=== PATIENT | female | born 1940 | race Caucasian/White ===

== ENCOUNTER 2018-01-15 14:27 | Outpatient (CLI) | payer MEDICARE | END 2018-01-15 14:28 | disposition home or self-care (01) | LOC: BICMAMMO 14:27 | PROVIDERS: ATTEND Internal Medicine | DX: Z12.31 Encounter for screening mammogram for malignant neoplasm of breast (principal); Z13.820 Encounter for screening for osteoporosis; M85.831 Other specified disorders of bone density and structure, right forearm; M81.0 Age-related osteoporosis without current pathological fracture; R92.1 Mammographic calcification found on diagnostic imaging of breast | CPT/HCPCS: 77063; 77067; 77080 ==

== ENCOUNTER 2018-07-05 09:14 | Outpatient (CLI) | payer MEDICARE ==
--- NOTE | 2018-07-05 11:33 | ULT ---
RIGHT UPPER QUADRANT ULTRASOUND: Date: 07/05/18 HISTORY: Abdominal pain. Celiac disease. FINDINGS: The patient is post cholecystectomy. The liver demonstrates homogeneous echotexture without focal mas s or intrahepatic ductal dilatation. The common duct measures 7.0 mm in diameter. The right kidney is normal. The visualized portions of the pancreas are unremarkable. No free fluid is seen in Morison's pouch. IMPRESSION: Status post cholecystectomy. No significant abnormalities are identified. POS: [facility]
== END 2018-07-05 09:15 | disposition home or self-care (01) ==
LOC: BICULT 09:14
PROVIDERS: ATTEND Internal Medicine
DX: R10.11 Right upper quadrant pain (principal); Z90.49 Acquired absence of other specified parts of digestive tract
CPT/HCPCS: 76705

== ENCOUNTER 2019-03-17 10:41 | Outpatient (CLI) | payer MEDICARE ==
--- NOTE | 2019-03-17 13:16 | MMO ---
Bilateral MAMMO Bilat Screen [facility]. CLINICAL HISTORY: Patient is 79 years old and is seen for screening. The patient has no family history of breast cancer. The patient has no personal history of cancer. VIEWS: The views performed were: bilateral craniocaudal with tomosynthesis and bilateral mediolateral oblique with tomosynthesis. FILMS COMPARED: The present examination has been compared to prior imaging studies performed at [facility] on 10/12/2014, 10/26/2015, 11/17/2016 and 01/15/2018. MAMMOGRAM FINDINGS: There are scattered fibroglandular densities. There are no suspicious masses, suspicious calcifications, or new areas of architectural distortion. IMPRESSION: THERE IS NO MAMMOGRAPHIC EVIDENCE OF MALIGNANCY. A ROUTINE FOLLOW-UP MAMMOGRAM IN 1 YEAR IS RECOMMENDED. THE RESULTS OF THIS EXAM WERE SENT TO THE PATIENT. ACR BI-RADS Category 1 - Negative MAMMOGRAPHY NOTE: 1. A negative mammogram report should not delay a biopsy if a dominant of clinically suspicious mass is present. 2. Approximately 10% to 15% of breast cancers are not detected by mammography. 3. Adenosis and dense breasts may obscure an underlying neoplasm. Reported by: KANA ECHAVARRIA MD Electonically Signed: [id number]
== END 2019-03-17 10:42 | disposition home or self-care (01) ==
LOC: BICMAMMO 10:41
PROVIDERS: ATTEND Internal Medicine
DX: Z12.31 Encounter for screening mammogram for malignant neoplasm of breast (principal)
CPT/HCPCS: 77063; 77067

== ENCOUNTER 2019-06-30 10:28 | Outpatient (CLI) | payer MEDICARE, OTHER ==
--- NOTE | 2019-06-30 12:54 | CT ---
CT ABDOMEN AND PELVIS WITH CONTRAST: HISTORY: Right-sided abdominal pain. FINDINGS: ABDOMEN: The lung bases are clear of any infiltrative process. The liver, spleen and pancreas regions appear unremarkable. The gallbladder appears to have been noble jacky. The right and left adrenal glands are normal. A hypodensity involving the left kidney measures 2.4 cm , compatible with a cyst. No renal calculi or obstruction. No significant periaortic or mesenteric ad enopathy. PELVIS: The cecum is low lying in position. It is difficult to definitely identify an appendix. I do not see any definite evidence for appendicitis. There is some very mild diverticulosis of the sigmoid colon noted. There is an area of some narrowing to the ascending colon which is felt to most likely be just related to contraction. Postoperative changes of the lower lumbar spine, sacrum and both hips are seen. IMPRESSION: No acute findings of the abdomen or pelvis. Incidental findings as noted above. POS: [facility]
== END 2019-06-30 10:29 | disposition home or self-care (01) ==
LOC: BICCT 10:28
PROVIDERS: ATTEND Internal Medicine
DX: R10.11 Right upper quadrant pain (principal)
CPT/HCPCS: 74177

== ENCOUNTER 2020-03-23 08:26 | Outpatient (CLI) | payer MEDICARE, OTHER ==
--- NOTE | 2020-03-23 09:29 | BD ---
EXAM: DEXA bone density examination HISTORY: 80-year-old postmenopausal female for screening COMPARISON: None FINDINGS: Left distal third forearm--bone mineral density0.567; T score -2.1 Total left distal forearm--bone mineral density 0.394; T score -3.4 Right distal third forearm--bone mineral density0.589; T score -1.7 Total right distal forearm--bone mineral density 0.415; T score -3.0 IMPRESSION: Osteoporosis.
--- NOTE | 2020-03-23 11:00 | MMO ---
Bilateral MAMMO Bilat Screen [facility]. CLINICAL HISTORY: Patient is 80 years old and is seen for screening. The patient has no family history of breast cancer. The patient has no personal history of cancer. VIEWS: The views performed were: bilateral craniocaudal with tomosynthesis and bilateral mediolateral oblique with tomosynthesis. FILMS COMPARED: The present examination has been compared to prior imaging studies performed at [facility] on 10/26/2015, 11/17/2016, 01/15/2018 and 03/17/2019. This study has been interpreted with the assistance of computer-aided detection. MAMMOGRAM FINDINGS: There are scattered fibroglandular densities. There are no suspicious masses, suspicious calcifications, or new areas of architectural distortion. IMPRESSION: THERE IS NO MAMMOGRAPHIC EVIDENCE OF MALIGNANCY. A ROUTINE FOLLOW-UP MAMMOGRAM IN 1 YEAR IS RECOMMENDED. THE RESULTS OF THIS EXAM WERE SENT TO THE PATIENT. ACR BI-RADS Category 1 - Negative MAMMOGRAPHY NOTE: 1. A negative mammogram report should not delay a biopsy if a dominant of clinically suspicious mass is present. 2. Approximately 10% to 15% of breast cancers are not detected by mammography. 3. Adenosis and dense breasts may obscure an underlying neoplasm. Reported by: WILDER GARDUNO MD Electonically Signed: [id number]
== END 2020-03-23 08:27 | disposition home or self-care (01) ==
LOC: BICMAMMO 08:26
PROVIDERS: ATTEND Internal Medicine
DX: Z12.31 Encounter for screening mammogram for malignant neoplasm of breast (principal); M81.0 Age-related osteoporosis without current pathological fracture
CPT/HCPCS: 77063; 77067; 77080

== ENCOUNTER 2021-03-29 08:30 | Outpatient (CLI) | payer MEDICARE, OTHER | END 2021-03-29 08:31 | disposition home or self-care (01) | LOC: BICMAMMO 08:30 | PROVIDERS: ATTEND Internal Medicine | DX: Z12.31 Encounter for screening mammogram for malignant neoplasm of breast (principal) | CPT/HCPCS: 77063; 77067 ==

== ENCOUNTER 2024-04-19 12:54 | Inpatient (IN) | payer MEDICARE, OTHER ==
[2024-04-19 14:05] LABS: Bacteria/HPF 4+ HPF (None Seen); Bilirubin Negative (Negative); Blood, Urine 3+ (Negative); CAUTI Indications for Culture Alt mental st,lethar; Clarity Turbid (Clear); Glucose, Urine (Dipstick) Normal (Negative); Ketone, Urine Negative (Negative); Leukocyte 75 Leu/uL (Negative); Nitrite Negative (Negative); Protein, Urine (Dipstick) 30 mg/dL (Neg-Trace); RBC/HPF 21-50 HPF (0-3); Specific Gravity, Urine 1.025 (1.002-1.036); Squamous Epithelial 0-3 HPF (0-3); Urobilinogen 3 mg/dL (Less than 2); WBC/HPF 21-50 HPF (0-3); pH, Urine 5.5 (5.0-9.0)
[2024-04-19 14:07] LABS: Urine Culture Reflex Yes Yes
[2024-04-19 14:10] LABS: #Basophils 0.11 10x3/uL (0.0-0.2); %Basophils 0.5 % (0.0-1.0); %Eosinophils 0.2 % (0.0-10.0); %Lymphocytes 8.1 % (21.0-51.0); %Monocytes 5.2 % (0.0-10.0); %Neutrophils 85.5 % (42.0-75.0); Hematocrit 47.5 % (36.0-47.0); Hemoglobin 15.8 g/dL (12.0-16.0); Mean Corpuscular HGB CONC 33.3 g/dL (32.0-36.0); Mean Corpuscular Hemoglobin 33.5 pg (27.0-31.0); Mean Corpuscular Volume 100.6 fL (78.0-98.0); Mean Platelet Volume 10.6 fL (7.4-10.4); Platelet Count 416 10x3/uL (130-400); RBC Distribution Width 14.2 % (11.5-14.5); Red Blood Cell (RBC) Count 4.72 mill/uL (4.20-5.40)
[2024-04-19 14:18] LABS: SARS-CoV-2 E Target Negative; SARS-CoV-2 N2 Target Negative; SARS-CoV-2 NAA Rapid Test Not Detected (NotDetected); SARS-CoV-2 RdRP gene Negative
[2024-04-19] MEDS ORDERED: cefTRIAXone (ROCEPHIN) 2 GM VIAL ONE (14:28)
[2024-04-19] MEDS ORDERED: Sodium Chloride 0.9% 100 ML ONE (14:28)
[2024-04-19 14:31] LABS: ALT (SGPT) 25 U/L (8-55); AST (SGOT) 18 U/L (5-34); Alkaline Phosphatase 82 U/L (40-110); Anion Gap 16 mmol/L (10-20); BUN (Urea Nitrogen) 44 mg/dL (9.8-20.1); Bilirubin, Total 0.6 mg/dL (0.2-1.2); CK (CPK) 33 U/L (29-168); Calc. Creatinine Clearance 0 mL/min (70-130); Calcium 11.3 mg/dL (7.8-10.44); Carbon Dioxide 27 mmol/L (23-31); Chloride 113 mmol/L (98-107); Estimated GFR 30; Globulin 4.2 g/dL (2.4-3.5); Glucose 134 mg/dL (83-110); Lipase 14 U/L (8-78); Potassium 3.9 mmol/L (3.5-5.1); Protein, Total 7.2 g/dL (5.8-8.1); Sodium 152 mmol/L (136-145); Troponin I 0.535 ng/mL (< 0.028)
[2024-04-19] MEDS ORDERED: Aspirin 300 MG Suppository ONE (14:39)
[2024-04-19] MEDS ORDERED: Acetaminophen 325 MG TAB PO PRN (15:36)
[2024-04-19] MEDS ORDERED: Ondansetron PF 4 MG/2 ML Vial IVP PRN (15:36)
[2024-04-19 16:06] LABS: Troponin I 0.433 ng/mL (< 0.028)
[2024-04-19 17:33] LABS: Free T4 (Free Thyroxine) 1.15 ng/dL (0.70-1.48)
[2024-04-19] MEDS: Vancomycin (BATCH) 1.25 GM in Premix 1 BAG IVPB SCH (17:50)
[2024-04-19 17:53] VITALS: BMI 18.0
[2024-04-19] MEDS: predniSONE 20 MG TAB PO SCH (18:29)
[2024-04-19] MEDS: Famotidine 20 MG TAB PO SCH (18:29)
[2024-04-19] MEDS: Dextrose 5 %-0.45 % NaCl 1,000 ML IV SCH (18:29)
[2024-04-19] MEDS: diphenhydrAMINE 25 MG CAP PO SCH (18:29)
[2024-04-19 18:42] LABS: Lactic Acid 2.5 mmol/L (0.5-2.2)
[2024-04-19 18:53] LABS: Troponin I 0.403 ng/mL (< 0.028)
[2024-04-19] MEDS: Carvedilol 6.25 MG TAB PO SCH (21:42)
[2024-04-19] MEDS: Heparin 5,000 UNITS/ML VIAL SC SCH (21:42)
[2024-04-19] MEDS: Donepezil HCl 10 MG TAB PO SCH (21:43)
[2024-04-20] MEDS: Levothyroxine Sodium 112 MCG TAB PO SCH (06:37)
[2024-04-20] MEDS: Levothyroxine Sodium 25 MCG TAB PO SCH (06:37)
[2024-04-20 06:59] LABS: #Basophils 0.04 10x3/uL (0.0-0.2); #Eosinphils Less than 0.03 10x3/uL (0.0-0.7); %Basophils 0.2 % (0.0-1.0); %Lymphocytes 6.4 % (21.0-51.0); %Monocytes 4.3 % (0.0-10.0); %Neutrophils 87.9 % (42.0-75.0); Hematocrit 41.1 % (36.0-47.0); Hemoglobin 13.2 g/dL (12.0-16.0); Mean Corpuscular HGB CONC 32.1 g/dL (32.0-36.0); Mean Corpuscular Hemoglobin 32.3 pg (27.0-31.0); Mean Corpuscular Volume 100.5 fL (78.0-98.0); Mean Platelet Volume 10.5 fL (7.4-10.4); Platelet Count 305 10x3/uL (130-400); RBC Distribution Width 14.3 % (11.5-14.5); Red Blood Cell (RBC) Count 4.09 mill/uL (4.20-5.40)
[2024-04-20 07:37] LABS: Anion Gap 14 mmol/L (10-20); BUN (Urea Nitrogen) 32 mg/dL (9.8-20.1); Calc. Creatinine Clearance 39 mL/min (70-130); Calcium 9.6 mg/dL (7.8-10.44); Carbon Dioxide 23 mmol/L (23-31); Chloride 114 mmol/L (98-107); Estimated GFR 63; Glucose 111 mg/dL (83-110); Potassium 3.5 mmol/L (3.5-5.1); Sodium 147 mmol/L (136-145)
[2024-04-20] MEDS ORDERED: Lorazepam 2 MG/ML VIAL SLOW IVP PRN (09:59)
[2024-04-20] MEDS: Amitriptyline HCl 25 MG TAB PO SCH (10:47)
[2024-04-20] MEDS: Memantine 10 MG TAB PO SCH (10:47)
[2024-04-20] MEDS: Potassium Chloride 20 MEQ TAB PO SCH (10:48)
[2024-04-20] MEDS: Potassium Chloride 20 MEQ in Premix 1 BAG IVPB SCH (12:39)
[2024-04-20] MEDS: cefTRIAXone\\ROCEPHIN 1 GM in Sodium Chloride 0.9% 100 ML IVPB SCH (15:07)
[2024-04-20] MEDS: DAPTOmycin 500 MG in Sodium Chloride 0.9% 50 ML IVPB SCH (17:37)
[2024-04-21] MEDS: Levothyroxine Sodium 25 MCG TAB PO SCH (05:26)
[2024-04-21 05:37] LABS: #Basophils 0.05 10x3/uL (0.0-0.2); %Basophils 0.3 % (0.0-1.0); %Eosinophils 0.2 % (0.0-10.0); %Lymphocytes 7.9 % (21.0-51.0); %Monocytes 3.4 % (0.0-10.0); %Neutrophils 87.4 % (42.0-75.0); Hematocrit 39.3 % (36.0-47.0); Mean Corpuscular HGB CONC 33.1 g/dL (32.0-36.0); Mean Corpuscular Hemoglobin 33.3 pg (27.0-31.0); Mean Corpuscular Volume 100.8 fL (78.0-98.0); Mean Platelet Volume 10.5 fL (7.4-10.4); Platelet Count 279 10x3/uL (130-400); RBC Distribution Width 14.3 % (11.5-14.5)
[2024-04-21 06:35] LABS: ALT (SGPT) 16 U/L (8-55); AST (SGOT) 18 U/L (5-34); Albumin 2.1 g/dL (3.4-4.8); Alkaline Phosphatase 82 U/L (40-110); Anion Gap 12 mmol/L (10-20); BUN (Urea Nitrogen) 14 mg/dL (9.8-20.1); Bilirubin, Total 0.4 mg/dL (0.2-1.2); Calc. Creatinine Clearance 50 mL/min (70-130); Calcium 9.2 mg/dL (7.8-10.44); Carbon Dioxide 21 mmol/L (23-31); Chloride 111 mmol/L (98-107); Estimated GFR 86; Globulin 3.8 g/dL (2.4-3.5); Glucose 105 mg/dL (83-110); Magnesium 1.7 mg/dL (1.6-2.6); Potassium 3.1 mmol/L (3.5-5.1); Protein, Total 5.9 g/dL (5.8-8.1); Sodium 141 mmol/L (136-145)
[2024-04-21] MEDS: Magnesium 2 GM/50 ML(in water) 2 GM in Premix 1 BAG IVPB SCH (09:40)
[2024-04-21] MEDS: Potassium Chloride 20 MEQ in Premix 1 BAG IVPB SCH (09:49)
[2024-04-21 10:50] VITALS: BMI 18.0
[2024-04-22 07:47] LABS: #Basophils 0.03 10x3/uL (0.0-0.2); %Basophils 0.2 % (0.0-1.0); %Eosinophils 1.2 % (0.0-10.0); %Lymphocytes 10.8 % (21.0-51.0); %Monocytes 5.5 % (0.0-10.0); %Neutrophils 81.8 % (42.0-75.0); Hematocrit 39.2 % (36.0-47.0); Hemoglobin 12.7 g/dL (12.0-16.0); Mean Corpuscular HGB CONC 32.4 g/dL (32.0-36.0); Mean Corpuscular Hemoglobin 33.2 pg (27.0-31.0); Mean Corpuscular Volume 102.6 fL (78.0-98.0); Mean Platelet Volume 10.9 fL (7.4-10.4); Platelet Count 256 10x3/uL (130-400); RBC Distribution Width 14.5 % (11.5-14.5); Red Blood Cell (RBC) Count 3.82 mill/uL (4.20-5.40)
[2024-04-22 08:07] LABS: ALT (SGPT) 20 U/L (8-55); AST (SGOT) 25 U/L (5-34); Alkaline Phosphatase 78 U/L (40-110); Anion Gap 15 mmol/L (10-20); BUN (Urea Nitrogen) 7 mg/dL (9.8-20.1); Bilirubin, Total 0.6 mg/dL (0.2-1.2); Calc. Creatinine Clearance 55 mL/min (70-130); Carbon Dioxide 18 mmol/L (23-31); Chloride 109 mmol/L (98-107); Estimated GFR 88; Globulin 3.9 g/dL (2.4-3.5); Glucose 89 mg/dL (83-110); Magnesium 1.7 mg/dL (1.6-2.6); Potassium 3.7 mmol/L (3.5-5.1); Protein, Total 5.9 g/dL (5.8-8.1); Sodium 138 mmol/L (136-145)
[2024-04-22] MEDS: Ketorolac Tromethamine 30 MG (1 mL) VIAL IVP SCH (14:38)
[2024-04-23 05:38] LABS: #Basophils 0.04 10x3/uL (0.0-0.2); %Basophils 0.6 % (0.0-1.0); %Eosinophils 3.7 % (0.0-10.0); %Monocytes 8.7 % (0.0-10.0); %Neutrophils 65.5 % (42.0-75.0); Hemoglobin 11.5 g/dL (12.0-16.0); Mean Corpuscular HGB CONC 32.9 g/dL (32.0-36.0); Mean Corpuscular Hemoglobin 33.3 pg (27.0-31.0); Mean Corpuscular Volume 101.4 fL (78.0-98.0); Mean Platelet Volume 10.5 fL (7.4-10.4); Platelet Count 251 10x3/uL (130-400); RBC Distribution Width 14.1 % (11.5-14.5); Red Blood Cell (RBC) Count 3.45 mill/uL (4.20-5.40)
[2024-04-23 06:06] LABS: ALT (SGPT) 20 U/L (8-55); AST (SGOT) 27 U/L (5-34); Albumin 1.8 g/dL (3.4-4.8); Alkaline Phosphatase 70 U/L (40-110); Anion Gap 11 mmol/L (10-20); BUN (Urea Nitrogen) 8 mg/dL (9.8-20.1); Bilirubin, Total 0.5 mg/dL (0.2-1.2); Calc. Creatinine Clearance 57 mL/min (70-130); Calcium 8.7 mg/dL (7.8-10.44); Carbon Dioxide 25 mmol/L (23-31); Chloride 108 mmol/L (98-107); Estimated GFR 88; Globulin 3.6 g/dL (2.4-3.5); Glucose 73 mg/dL (83-110); Potassium 3.1 mmol/L (3.5-5.1); Protein, Total 5.4 g/dL (5.8-8.1); Sodium 141 mmol/L (136-145)
[2024-04-23] MEDS: Potassium Chloride 20 MEQ TAB PO SCH (09:47)
[2024-04-23] MEDS: Ketorolac Tromethamine 30 MG (1 mL) VIAL IVP PRN (13:19)
[2024-04-24] MEDS ORDERED: Lidocaine 1% PF 5 ML VIAL ONE (10:22)
[2024-04-24] MEDS ORDERED: Sodium Bicarbonate 0.5 MEQ/ML SDV 10 ML ONE (10:22)
[2024-04-24 11:02] LABS: #Basophils 0.04 10x3/uL (0.0-0.2); %Basophils 0.5 % (0.0-1.0); %Eosinophils 3.7 % (0.0-10.0); %Monocytes 8.3 % (0.0-10.0); %Neutrophils 72.1 % (42.0-75.0); Hematocrit 38.2 % (36.0-47.0); Hemoglobin 12.7 g/dL (12.0-16.0); Mean Corpuscular HGB CONC 33.2 g/dL (32.0-36.0); Mean Corpuscular Hemoglobin 32.3 pg (27.0-31.0); Mean Corpuscular Volume 97.2 fL (78.0-98.0); Mean Platelet Volume 10.9 fL (7.4-10.4); Platelet Count 286 10x3/uL (130-400); RBC Distribution Width 13.8 % (11.5-14.5); Red Blood Cell (RBC) Count 3.93 mill/uL (4.20-5.40)
[2024-04-24 11:32] LABS: Anion Gap 12 mmol/L (10-20); BUN (Urea Nitrogen) 5 mg/dL (9.8-20.1); Calc. Creatinine Clearance 57 mL/min (70-130); Calcium 8.9 mg/dL (7.8-10.44); Carbon Dioxide 22 mmol/L (23-31); Chloride 108 mmol/L (98-107); Estimated GFR 88; Glucose 89 mg/dL (83-110); Potassium 3.7 mmol/L (3.5-5.1); Sodium 138 mmol/L (136-145)
[2024-04-25 11:58] VITALS: BP 116/69; TEMP 97.7
== END 2024-04-25 18:23 | DRG 871 ==
LOC: ERS 12:54 → 2NO 14:52 → T4-A 04-23 19:48
PROVIDERS: ADMIT Internal Medicine; ATTEND Internal Medicine
PROC: 3E03329 Introduction of Other Anti-infective into Peripheral Vein, Percutaneous Approach (ICD-10-PCS; 2024-04-19)
PROC: 02HV33Z Insertion of Infusion Device into Superior Vena Cava, Percutaneous Approach (ICD-10-PCS; principal; 2024-04-24)
PROC: B5181ZA Fluoroscopy of Superior Vena Cava using Low Osmolar Contrast, Guidance (ICD-10-PCS; 2024-04-24)
DX: A41.02 Sepsis due to Methicillin resistant Staphylococcus aureus (principal); G93.41 Metabolic encephalopathy; E87.1 Hypo-osmolality and hyponatremia; N39.0 Urinary tract infection, site not specified; N17.9 Acute kidney failure, unspecified; I5A Non-ischemic myocardial injury (non-traumatic); I24.89 Other forms of acute ischemic heart disease; E44.0 Moderate protein-calorie malnutrition; E87.20 Acidosis, unspecified; E03.9 Hypothyroidism, unspecified; F03.90 Unspecified dementia, unspecified severity, without behavioral disturbance, psychotic disturbance, mood disturbance, and anxiety; Z66 Do not resuscitate; E86.0 Dehydration; K11.21 Acute sialoadenitis; Z88.1 Allergy status to other antibiotic agents; Z88.0 Allergy status to penicillin; Z88.8 Allergy status to other drugs, medicaments and biological substances; Z79.899 Other long term (current) drug therapy; Z79.01 Long term (current) use of anticoagulants; Z90.49 Acquired absence of other specified parts of digestive tract; Z87.891 Personal history of nicotine dependence
CPT/HCPCS: 36415; 36416; 36569; 51701; 70450; 71045; 76770; 76937; 76999; 77001; 80048; 80053; 81001; 82140; 82550; 83605; 83690; 83735; 84439; 84443; 84481; 84484; 85025; 87040; 87077; 87086; 87149; 87186; 93005; 93306; 96360; 96361; 96365; 96367; C1751; J0696; J0878; J1644; J1885; J3370; J3475; J3480; J7042; J7512; U0002

== ENCOUNTER 2024-06-08 12:00 | Emergency (ER) | payer MEDICARE, OTHER ==
[2024-06-08 12:45] LABS: #Basophils 0.06 10x3/uL (0.0-0.2); %Basophils 1.2 % (0.0-1.0); %Eosinophils 2.4 % (0.0-10.0); %Monocytes 13.5 % (0.0-10.0); %Neutrophils 60.5 % (42.0-75.0); Hematocrit 44.5 % (36.0-47.0); Hemoglobin 14.4 g/dL (12.0-16.0); Mean Corpuscular HGB CONC 32.4 g/dL (32.0-36.0); Mean Corpuscular Hemoglobin 33.3 pg (27.0-31.0); Mean Corpuscular Volume 102.8 fL (78.0-98.0); Mean Platelet Volume 10.1 fL (7.4-10.4); Platelet Count 343 10x3/uL (130-400); RBC Distribution Width 14.9 % (11.5-14.5); Red Blood Cell (RBC) Count 4.33 mill/uL (4.20-5.40)
[2024-06-08 13:01] LABS: ALT (SGPT) 13 U/L (8-55); AST (SGOT) 23 U/L (5-34); Albumin 3.5 g/dL (3.4-4.8); Alkaline Phosphatase 97 U/L (40-110); Anion Gap 15 mmol/L (10-20); BUN (Urea Nitrogen) 36 mg/dL (9.8-20.1); Bilirubin, Total 0.4 mg/dL (0.2-1.2); Calc. Creatinine Clearance 0 mL/min (70-130); Calcium 10.7 mg/dL (7.8-10.44); Carbon Dioxide 26 mmol/L (23-31); Chloride 109 mmol/L (98-107); Digoxin 1.69 ng/mL (0.8-2.0); Estimated GFR 44; Globulin 3.8 g/dL (2.4-3.5); Glucose 108 mg/dL (83-110); Magnesium 2.3 mg/dL (1.6-2.6); Potassium 4.9 mmol/L (3.5-5.1); Protein, Total 7.3 g/dL (5.8-8.1); Sodium 145 mmol/L (136-145)
[2024-06-08 13:07] LABS: Troponin I 0.075 ng/mL (< 0.028)
[2024-06-08 15:17] LABS: Bacteria/HPF 2+ HPF (None Seen); Bilirubin Negative (Negative); Blood, Urine 1+ (Negative); CAUTI Indications for Culture Alt mental st,lethar; Clarity Turbid (Clear); Glucose, Urine (Dipstick) Normal (Negative); Ketone, Urine Trace mg/dL (Negative); Leukocyte 500 Leu/uL (Negative); Nitrite 2+ (Negative); Protein, Urine (Dipstick) 50 mg/dL (Neg-Trace); Specific Gravity, Urine 1.018 (1.002-1.036); Squamous Epithelial 0-3 HPF (0-3); Urobilinogen Normal mg/dL (Less than 2); WBC/HPF Greater than 50 HPF (0-3)
[2024-06-08 15:18] LABS: Urine Culture Reflex Yes Yes
[2024-06-08] MEDS ORDERED: Sodium Chloride 0.9% 100 ML ONE (15:37)
[2024-06-08] MEDS ORDERED: cefTRIAXone (ROCEPHIN) 1 GM VIAL ONE (15:37)
[2024-06-08 15:41] LABS: Troponin I 0.064 ng/mL (< 0.028)
== END 2024-06-08 16:37 | disposition home or self-care (01) ==
LOC: ERS 12:00
DX: N39.0 Urinary tract infection, site not specified (principal); E86.0 Dehydration; Z55.6 Problems related to health literacy; Z87.891 Personal history of nicotine dependence
CPT/HCPCS: 51701; 70450; 71045; 80053; 80162; 81001; 83735; 84484 ×2; 85025; 87077; 87086; 87186; 93005; 96374; 99285; J0696; 36415